=== PATIENT | female | born 1970 | race Caucasian/White ===

== ENCOUNTER 2020-05-12 15:57 | Emergency (ER) | payer MEDICAID ==
--- NOTE | 2020-05-12 17:01 | EDM.PDOCBH ---
ED HPI GENERAL MEDICAL PROBLEM - General Chief Complaint: Behavioral/Psych Stated Complaint: [facility] Time Seen by Provider: 05/12/20 16:17 Source of Information: Reports: Patient, Old Records History Limitations: Reports: No Limitations - History of Present Illness INITIAL COMMENTS - FREE TEXT/NARRATIVE: Patient was brought in for medical clearance for psychiatric admission. She was brought in by police lieutenant. She is under court order for psychiatric hospital admission. The patient has a history of alcohol and drug abuse but has been clean and sober for 8 years she says. She had a psychiatric admission in 2018 for a manic episode. No other substantial medical issues. The patient has smoked cigarettes and she now vapes. She reports no health issues at present. No fever or any other symptom of a chronic illness or condition. The episode superseding the psychiatric referral and the court order for it was apparently a manic episode similar to 1 in the past which made her unmanageable and her adult children feared for her safety. - Related Data Allergies Allergy/AdvReac Type Severity Reaction Status Date / Time miconazole Allergy Other Verified 05/12/20 16:09 [From Neosporin AF] Sulfa (Sulfonamide Allergy Other Verified 05/12/20 16:09 Antibiotics) Home Meds: Home Meds Sertraline [Zoloft] 75 mg PO DAILY 05/12/20 [History] Sertraline [Zoloft] 75 mg PO DAILY MDD 175 mg 05/12/20 [History] Past Medical History - Past Health History Medical/Surgical History: Denies Medical/Surgical History Psychiatric History: Reports: Addiction Other Psychiatric History: mother reports patient has history of meth use - Past Surgical History HEENT Surgical History: Reports: Oral Surgery Social & Family History - Family History Family Medical History: No Pertinent Family History - Tobacco Use Tobacco Use Status *Q: Current Every Day Tobacco User Years of Tobacco use: 1 Packs/Tins Daily: 1 Used Tobacco, but Quit: Yes Month/Year Tobacco Last Used: 04/2020 Second Hand Smoke Exposure: No - Caffeine Use Caffeine Use: Reports: Coffee - Alcohol Use Days Per Week of Alcohol Use: 4 Number of Drinks Per Day: 4 Total Drinks Per Week: 16 Date of Last Drink: 02/17/09 - Recreational Drug Use Recreational Drug Use: Yes Drug Use in Last 12 Months: No Recreational Drug Type: Reports: Cocaine, Marijuana/Hashish, Methamphetamine Recreational Drug Use Frequency: Not Used In Over 6 Months - Living Situation & Occupation Living situation: Reports: , with Family (Father, son, & daughter) Occupation: Employed (Grocery store) ED ROS GENERAL - Review of Systems Review Of Systems: Comprehensive ROS is negative, except as noted in HPI. ED EXAM, BEHAVIORAL HEALTH - Physical Exam Exam: See Below Text/Narrative:: On exam the patient is alert and appears well. Head normocephalic atraumatic. PERRLA and EOMI. Neck is supple without jugular venous distention. Lungs are clear, full and equal breath sounds bilaterally. Heart is regular without abnormal heart sounds. Abdomen soft and nontender. No peripheral edema cyanosis or clubbing of the digits. Neurologically intact with fluent speech normal gait no weakness and sensorial intact. COURSE, BEHAVIORAL HEALTH COMP - Course Vital Signs: Last Vital Signs Temp 36.1 C 05/12/20 16:04 Pulse 73 05/12/20 16:04 Resp 16 05/12/20 16:04 BP 135/87 05/12/20 16:04 Pulse Ox 97 05/12/20 16:04 Orders, Labs, Meds: Active Orders 24 hr Category Date Time Status CULTURE URINE [RM] Stat Lab 05/12/20 17:01 Received UA W/MICROSCOPIC [URIN] Stat Lab 05/12/20 17:01 Results Laboratory Tests 05/12/20 05/12/20 05/12/20 Range/Units 17:00 17:01 17:01 WBC (3.98-10.04) K/mm3 RBC (3.98-5.22) M/mm3 Hgb (11.2-15.7) gm/dl Hct (34.1-44.9) % MCV (79.4-94.8) fl MCH (25.6-32.2) pg MCHC (32.2-35.5) g/dl RDW Std Deviation (36.4-46.3) fL Plt Count (182-369) K/mm3 MPV (9.4-12.3) fl Neutrophils % (Manual) (40-60) % Band Neutrophils % (0-10) % Lymphocytes % (Manual) (20-40) % Atypical Lymphs % % Monocytes % (Manual) (2-10) % Eosinophils % (Manual) (0.7-5.8) % Basophils % (Manual) (0.1-1.2) Platelet Estimate RBC Morph Comment Sodium (136-145) mEq/L Potassium (3.5-5.1) mEq/L Chloride (98-107) mEq/L Carbon Dioxide (21-32) mEq/L Anion Gap (5-15) BUN (7-18) mg/dL Creatinine (0.55-1.02) mg/dL Est Cr Clr Drug Dosing mL/min Estimated GFR (MDRD) (>60) mL/min BUN/Creatinine Ratio (14-18) Glucose (74-106) mg/dL Calcium (8.5-10.1) mg/dL Total Bilirubin (0.2-1.0) mg/dL AST (15-37) U/L ALT (14-59) U/L Alkaline Phosphatase (46-116) U/L Total Protein (6.4-8.2) g/dl Albumin (3.4-5.0) g/dl Globulin gm/dL Albumin/Globulin Ratio (1-2) TSH 3rd Generation (0.358-3.74) uIU/mL Urine Color Yellow (Yellow) Urine Appearance Clear (Clear) Urine pH 5.5 (5.0-8.0) Ur Specific [place] 1.025 (1.005-1.030) Urine Protein Negative (Negative) Urine Glucose (UA) Negative (Negative) Urine Ketones Negative (Negative) Urine Occult Blood Negative (Negative) Urine Nitrite Negative (Negative) Urine Bilirubin Negative (Negative) Urine Urobilinogen 0.2 (0.2-1.0) Ur Leukocyte Esterase Trace H (Negative) Urine HCG, Qual (NEGATIVE) Salicylates (2.8-20) mg/dL Urine Opiates Screen Negative (CESWBH=194) Ur Buprenorphine Scrn Negative (CUTOFF=10) Ur Oxycodone Screen Negative (BWI2YI=848) Urine Methadone Screen Negative (PJPSSL=836) Ur Propoxyphene Screen Negative (NASTFB=428) Acetaminophen (10-30) ug/mL Ur Barbiturates Screen Negative (EPXEQC=781) Ur Tricyclics Screen Negative (ISZLRT=473) Ur Phencyclidine Scrn Negative (CUTOFF=25) Ur Amphetamine Screen Negative (HNCWPL=016) U Methamphetamines Scrn Negative (PNJCZV=080) U Benzodiazepines Scrn Negative (YVYGMV=824) U Cocaine Metab Screen Negative (GYINZG=188) U Marijuana (THC) Screen Negative (CUTOFF=50) Ethyl Alcohol (0.00) gm% SARS-CoV-2 RNA (PALLAVI) Negative (NEGATIVE) 05/12/20 05/12/20 05/12/20 Range/Units 17:01 17:19 17:19 WBC 7.62 (3.98-10.04) K/mm3 RBC 3.91 L (3.98-5.22) M/mm3 Hgb 12.2 D (11.2-15.7) gm/dl Hct 37.6 (34.1-44.9) % MCV 96.2 H (79.4-94.8) fl MCH 31.2 (25.6-32.2) pg MCHC 32.4 (32.2-35.5) g/dl RDW Std Deviation 47.0 H (36.4-46.3) fL Plt Count 267 (182-369) K/mm3 MPV 10.8 (9.4-12.3) fl Neutrophils % (Manual) 69 H (40-60) % Band Neutrophils % 0 (0-10) % Lymphocytes % (Manual) 21 (20-40) % Atypical Lymphs % 0 % Monocytes % (Manual) 6 (2-10) % Eosinophils % (Manual) 4 (0.7-5.8) % Basophils % (Manual) 0 L (0.1-1.2) Platelet Estimate Adequate RBC Morph Comment Normal Sodium 142 (136-145) mEq/L Potassium 3.7 (3.5-5.1) mEq/L Chloride 105 (98-107) mEq/L Carbon Dioxide 26 (21-32) mEq/L Anion Gap 14.7 (5-15) BUN 22 H (7-18) mg/dL Creatinine 0.9 (0.55-1.02) mg/dL Est Cr Clr Drug Dosing 71.11 mL/min Estimated GFR (MDRD) > 60 (>60) mL/min BUN/Creatinine Ratio 24.4 H (14-18) Glucose 111 H (74-106) mg/dL Calcium 9.1 (8.5-10.1) mg/dL Total Bilirubin 0.2 (0.2-1.0) mg/dL AST 14 L (15-37) U/L ALT 37 (14-59) U/L Alkaline Phosphatase 52 (46-116) U/L Total Protein 7.1 (6.4-8.2) g/dl Albumin 3.8 (3.4-5.0) g/dl Globulin 3.3 gm/dL Albumin/Globulin Ratio 1.2 (1-2) TSH 3rd Generation 0.865 (0.358-3.74) uIU/mL Urine Color (Yellow) Urine Appearance (Clear) Urine pH (5.0-8.0) Ur Specific [place] (1.005-1.030) Urine Protein (Negative) Urine Glucose (UA) (Negative) Urine Ketones (Negative) Urine Occult Blood (Negative) Urine Nitrite (Negative) Urine Bilirubin (Negative) Urine Urobilinogen (0.2-1.0) Ur Leukocyte Esterase (Negative) Urine HCG, Qual Negative (NEGATIVE) Salicylates (2.8-20) mg/dL Urine Opiates Screen (YGNGUM=636) Ur Buprenorphine Scrn (CUTOFF=10) Ur Oxycodone Screen (PNX4IY=478) Urine Methadone Screen (HDAQXN=546) Ur Propoxyphene Screen (BKKGPM=598) Acetaminophen 0 L (10-30) ug/mL Ur Barbiturates Screen (HNDWZG=032) Ur Tricyclics Screen (CXQQUF=585) Ur Phencyclidine Scrn (CUTOFF=25) Ur Amphetamine Screen (VCASKS=783) U Methamphetamines Scrn (ZGJBBR=281) U Benzodiazepines Scrn (HLPUNO=592) U Cocaine Metab Screen (ZFQFSI=973) U Marijuana (THC) Screen (CUTOFF=50) Ethyl Alcohol 0.00 (0.00) gm% SARS-CoV-2 RNA (PALLAVI) (NEGATIVE) 05/12/20 Range/Units 17:19 WBC (3.98-10.04) K/mm3 RBC (3.98-5.22) M/mm3 Hgb (11.2-15.7) gm/dl Hct (34.1-44.9) % MCV (79.4-94.8) fl MCH (25.6-32.2) pg MCHC (32.2-35.5) g/dl RDW Std Deviation (36.4-46.3) fL Plt Count (182-369) K/mm3 MPV (9.4-12.3) fl Neutrophils % (Manual) (40-60) % Band Neutrophils % (0-10) % Lymphocytes % (Manual) (20-40) % Atypical Lymphs % % Monocytes % (Manual) (2-10) % Eosinophils % (Manual) (0.7-5.8) % Basophils % (Manual) (0.1-1.2) Platelet Estimate RBC Morph Comment Sodium (136-145) mEq/L Potassium (3.5-5.1) mEq/L Chloride (98-107) mEq/L Carbon Dioxide (21-32) mEq/L Anion Gap (5-15) BUN (7-18) mg/dL Creatinine (0.55-1.02) mg/dL Est Cr Clr Drug Dosing mL/min Estimated GFR (MDRD) (>60) mL/min BUN/Creatinine Ratio (14-18) Glucose (74-106) mg/dL Calcium (8.5-10.1) mg/dL Total Bilirubin (0.2-1.0) mg/dL AST (15-37) U/L ALT (14-59) U/L Alkaline Phosphatase (46-116) U/L Total Protein (6.4-8.2) g/dl Albumin (3.4-5.0) g/dl Globulin gm/dL Albumin/Globulin Ratio (1-2) TSH 3rd Generation (0.358-3.74) uIU/mL Urine Color (Yellow) Urine Appearance (Clear) Urine pH (5.0-8.0) Ur Specific [place] (1.005-1.030) Urine Protein (Negative) Urine Glucose (UA) (Negative) Urine Ketones (Negative) Urine Occult Blood (Negative) Urine Nitrite (Negative) Urine Bilirubin (Negative) Urine Urobilinogen (0.2-1.0) Ur Leukocyte Esterase (Negative) Urine HCG, Qual (NEGATIVE) Salicylates 1.3 L (2.8-20) mg/dL Urine Opiates Screen (JKPIVP=679) Ur Buprenorphine Scrn (CUTOFF=10) Ur Oxycodone Screen (PKL8KL=513) Urine Methadone Screen (YAEZHP=101) Ur Propoxyphene Screen (NCPUVB=139) Acetaminophen (10-30) ug/mL Ur Barbiturates Screen (PLLBRS=874) Ur Tricyclics Screen (TPCTOI=878) Ur Phencyclidine Scrn (CUTOFF=25) Ur Amphetamine Screen (VGRHGK=273) U Methamphetamines Scrn (RKPNME=235) U Benzodiazepines Scrn (UCOVNW=418) U Cocaine Metab Screen (GMUKUI=398) U Marijuana (THC) Screen (CUTOFF=50) Ethyl Alcohol (0.00) gm% SARS-CoV-2 RNA (PALLAVI) (NEGATIVE) Re-Assessment/Re-Exam: Patient is cleared for transfer to a psychiatric facility. No salient lab abnormals. Drug screen and alcohol are negative. Presented to [facility] and we are awaiting their approval to receive the patient. Departure - Departure Time of Disposition: 18:25 Disposition: DC/Tfer to Psych Hosp/Unit 65 Condition: Good Clinical Impression: Manic episode, severe with psychotic symptoms - Discharge Information Referrals: PCP,None [Primary Care Provider] - Forms: ED Department Discharge Sepsis Event Note (ED) - Evaluation Sepsis Screening Result: No Definite Risk - Focused Exam Vital Signs: Vital Signs Temp Pulse Resp BP Pulse Ox 05/12/20 16:04 36.1 C 73 16 135/87 97 - My Orders Last 24 Hours: My Active Orders 05/12/20 17:01 CULTURE URINE [RM] Stat UA W/MICROSCOPIC [URIN] Stat - Assessment/Plan Last 24 Hours: My Active Orders 05/12/20 17:01 CULTURE URINE [RM] Stat UA W/MICROSCOPIC [URIN] Stat
[2020-05-12 18:04] LABS: ACETAMINOPHEN 0 ug/mL (10-30)
== END 2020-05-12 18:45 ==
LOC: JD.ED 15:57
DX: F30.2 Manic episode, severe with psychotic symptoms (principal); Z72.0 Tobacco use; Z88.2 Allergy status to sulfonamides; Z88.1 Allergy status to other antibiotic agents; Z20.822 Contact with and (suspected) exposure to COVID-19
CPT/HCPCS: 36415; 80053; 80143; 80179; 80306; 80307; 81001; 81025; 84443; 85007; 85027; 87086; 99283; U0002